=== PATIENT | female | born 1965 | race Caucasian/White ===

== ENCOUNTER 2016-12-19 16:34 | Emergency (ER) | payer MEDICAID ==
[~2016-12-19] VITALS: Ht 165.1 cm; Wt 63.5 kg
[~2016-12-19 16:34] MED LIST: HCTZ
[2016-12-19] MEDS ORDERED: HYDROMORPHONE 1 MG/1 ML DISP.SYRIN IM ONE (17:00)
[2016-12-19] MEDS ORDERED: PROMETHAZINE HCL 25 MG/1 ML VIAL IM ONE (17:00)
[2016-12-19] MEDS ORDERED: HYDROMORPHONE 2 MG/1 ML DISP.SYRIN ONE (17:06)
[2016-12-19] MEDS ORDERED: PROMETHAZINE HCL 25 MG/1 ML VIAL ONE (17:06)
--- NOTE | 2016-12-19 17:08 | NUR ---
Patient discharged to home in stable conditon. Written and verbal after care instructions given. Patient verbalizes understanding of instructions.
== END 2016-12-19 17:06 | disposition home or self-care (01) ==
LOC: ER 16:34
DX: N39.0 Urinary tract infection, site not specified (principal); M54.6 Pain in thoracic spine; M54.2 Cervicalgia; G89.29 Other chronic pain; I10 Essential (primary) hypertension; F17.200 Nicotine dependence, unspecified, uncomplicated; G43.909 Migraine, unspecified, not intractable, without status migrainosus; Z88.2 Allergy status to sulfonamides; Z88.1 Allergy status to other antibiotic agents; Z88.8 Allergy status to other drugs, medicaments and biological substances
CPT/HCPCS: 96372 ×2; 99284; A4663; J1170; J2550

== ENCOUNTER 2017-01-08 11:34 | Emergency (ER) | payer MEDICAID ==
[~2017-01-08] VITALS: Ht 165.1 cm; Wt 66.7 kg
--- NOTE | 2017-01-08 12:27 | NUR ---
Pt ambulatory to bed 4a, pt waiting to be seen.
--- NOTE | 2017-01-08 12:39 | NUR ---
Patient discharged to home in stable conditon. Written and verbal after care instructions given. Patient verbalizes understanding of instructions.pt walks in steady gait, understands that needs follow up .
== END 2017-01-08 12:41 | disposition home or self-care (01) ==
LOC: ER 11:34
DX: M54.12 Radiculopathy, cervical region (principal); I10 Essential (primary) hypertension; F17.200 Nicotine dependence, unspecified, uncomplicated; G43.909 Migraine, unspecified, not intractable, without status migrainosus; Z88.2 Allergy status to sulfonamides; Z88.8 Allergy status to other drugs, medicaments and biological substances; Z88.1 Allergy status to other antibiotic agents
CPT/HCPCS: 99283; A4663

== ENCOUNTER 2017-02-23 20:21 | Emergency (ER) | payer MEDICAID ==
[~2017-02-23] VITALS: Ht 162.6 cm; Wt 65.3 kg
--- NOTE | 2017-02-23 20:58 | NUR ---
Patient eloped from facility. ER physician notified.
--- NOTE | 2017-02-23 21:03 | NUR ---
I told the patient that given her RLQ tenderness I'd like to perform a CT, but our scanner is down. I said we'd order the CT, get an ambulance, take her to [facility], get the CT, and bring her back. She said she'd rather drive there herself and then eloped. Well appearing with normal vitals. No peritonitis.
== END 2017-02-23 21:00 | disposition left against medical advice (07) ==
LOC: ER 20:21
DX: Z53.21 Procedure and treatment not carried out due to patient leaving prior to being seen by health care provider (principal)
CPT/HCPCS: A4663

== ENCOUNTER 2017-03-31 19:40 | Emergency (ER) | payer MEDICAID ==
[~2017-03-31] VITALS: Ht 165.1 cm; Wt 68.0 kg
[2017-03-31] MEDS ORDERED: MORPHINE SULFATE 2 MG/1 ML DISP.SYRIN IV ONE (20:00)
[2017-03-31] MEDS ORDERED: IV NORMAL SALINE 1000 ML BAG IV ONE (20:00)
[2017-03-31] MEDS ORDERED: ONDANSETRON 4 MG/2 ML VIAL IV ONE (20:00)
[2017-03-31] MEDS ORDERED: ONDANSETRON 4 MG/2 ML VIAL ONE (20:10)
[2017-03-31] MEDS ORDERED: MORPHINE SULFATE 4 MG/1 ML DISP.SYRIN ONE (20:10)
[2017-03-31 20:14] LABS: *BLOOD, URINE 2+ (NEGATIVE); *CLARITY,URINE SLIGHTLY CLOUDY (CLEAR); *COLOR,URINE Brown (YELLOW); *KETONES,URINE 1+ (NEGATIVE); *PROTEIN,URINE 2+ (NEGATIVE); LEUKOCYTE ESTERASE ,URINE NEGATIVE (NEGATIVE); NITRITE, URINE POSITIVE (NEGATIVE); PH,URINE 5.5 (5.0-8.0); UGLUCOSE NEGATIVE (NEGATIVE)
[2017-03-31 20:15] LABS: BASOPHILS # (AUTO) 0.1 K/uL (0.0-8.0); BASOPHILS % (AUTO) 0.5 % (0.0-2.0); EOSINOPHILS # (AUTO) 0.2 K/uL (0.0-0.7); EOSINOPHILS % (AUTO) 1.1 % (0.0-7.0); HEMATOCRIT 39.6 % (37-47); HEMOGLOBIN 13.1 G/DL (12.0-16.0); LYMPHOCYTES # (AUTO) 1.7 K/UL (0.8-4.8); LYMPHOCYTES % (AUTO) 9.3 % (20.5-51.5); MEAN CORPUSCULAR HEMOGLOBIN 31.6 UUG (27.0-31.0); MEAN CORPUSCULAR HGB CONC 33 g/dL (32.0-37.0); MEAN CORPUSCULAR VOLUME 95.2 FL (81.0-99.0); MONOCYTES # (AUTO) 1.2 K/UL (0.1-1.30); MONOCYTES % (AUTO) 6.5 % (0.0-11.0); NEUTROPHILS # (AUTO) 14.7 K/UL (1.8-8.9); NEUTROPHILS % (AUTO) 82.6 % (38.5-71.5); PLATELET COUNT (AUTO) 237 K/UL (150-450); RED BLOOD CELL COUNT(AUTO) 4.16 MIL/UL (4.2-5.4); WHITE BLOOD COUNT (AUTO) 17.9 K/UL (4.0-11.2)
[2017-03-31 20:23] LABS: POTASSIUM 3.9 mmol/L (3.5-5.1)
[2017-03-31 20:29] LABS: BILIRUBIN,DIRECT 0.2 mg/dL (0.0-0.2); BILIRUBIN,TOTAL 0.7 mg/dL (0.2-1.0); TOTAL PROTEIN, SERUM 7.3 g/dL (6.4-8.2)
[2017-03-31 20:31] LABS: *BILIRUBIN,URIN NEGATIVE (NEGATIVE)
[2017-03-31 20:33] LABS: BACTERIA,URINE MANY /HPF (NONE SEEN); MUCUS,URINE MANY /LPF (0-FEW); RBC,URINE 20-50 /HPF (0-3); SQUAMOUS EPITHELIAL CELL,UR MODERATE /HPF (NONE SEEN)
[2017-03-31 20:39] LABS: BAND % (MANUAL) 12 % (0-10); EOSINOPHILS % (MANUAL) 1 % (0-8); LYMPHOCYTES % (MANUAL) 8 % (20-40); MONOCYTES % (MANUAL) 7 % (2-10); NEUTROPHILS % (MANUAL) 72 % (42-75)
[2017-03-31] MEDS ORDERED: NORMAL SALINE FLUSH 10 ML DISP.SYRIN ONE (20:55)
[2017-03-31] MEDS ORDERED: IOHEXOL 300MG/ML 100 ML INFUS..BTL ONE (20:55)
[2017-03-31] MEDS ORDERED: IV NORMAL SALINE 250 ML IV ONE (20:55)
--- NOTE | 2017-03-31 22:00 | NUR ---
IV removed. Catheter intact and site benign. Pressure and 4x4 gauze applied to site. No bleeding noted.
--- NOTE | 2017-03-31 22:01 | NUR ---
Patient discharged to home in stable conditon with friend/family. Written and verbal after care instructions given. Patient verbalizes understanding of instructions. Stressed follow up with pmd.
[2017-03-31 22:07] VITALS: BP 123/74
== END 2017-03-31 22:08 | disposition home or self-care (01) ==
LOC: ER 19:41
DX: K57.92 Diverticulitis of intestine, part unspecified, without perforation or abscess without bleeding (principal); E86.0 Dehydration; I10 Essential (primary) hypertension; G43.909 Migraine, unspecified, not intractable, without status migrainosus; F17.200 Nicotine dependence, unspecified, uncomplicated; Z88.2 Allergy status to sulfonamides; Z88.8 Allergy status to other drugs, medicaments and biological substances; Z90.49 Acquired absence of other specified parts of digestive tract
CPT/HCPCS: 36415; 83690; 85025; A4663; J2270; J2405; J3490; J7030; J7050; Q9967

== ENCOUNTER 2017-06-20 11:34 | Emergency (ER) | payer MEDICAID ==
[~2017-06-20] VITALS: Ht 165.1 cm; Wt 62.1 kg
--- NOTE | 2017-06-20 12:29 | NUR ---
Patient discharged to home in stable conditon. Written and verbal after care instructions given to patient. Patient verbalizes understanding of instructions.
== END 2017-06-20 12:30 | disposition home or self-care (01) ==
LOC: ER 11:34
DX: M77.9 Enthesopathy, unspecified (principal); I10 Essential (primary) hypertension; Z85.41 Personal history of malignant neoplasm of cervix uteri; Z90.49 Acquired absence of other specified parts of digestive tract
CPT/HCPCS: 73080; 99284; A4663

== ENCOUNTER 2017-07-04 13:53 | Emergency (ER) | payer MEDICAID, OTHER ==
[~2017-07-04] VITALS: Ht 165.1 cm; Wt 61.2 kg
--- NOTE | 2017-07-04 16:53 | NUR ---
PT WAS EVALUATED BY DR RAMIREZ. PT WAS D/C TO HOME. D/C INSTRUCTIONS GIVEN TO THE PT.
[2017-07-04 16:54] VITALS: BP 136/81
== END 2017-07-04 16:55 | disposition home or self-care (01) ==
LOC: ER 13:55
DX: M77.9 Enthesopathy, unspecified (principal); I10 Essential (primary) hypertension; Z88.2 Allergy status to sulfonamides; Z85.41 Personal history of malignant neoplasm of cervix uteri; G43.909 Migraine, unspecified, not intractable, without status migrainosus
CPT/HCPCS: A4663

== ENCOUNTER 2017-08-26 11:48 | Emergency (ER) | payer OTHER ==
[~2017-08-26] VITALS: Ht 165.1 cm; Wt 59.9 kg
[2017-08-26 12:04] VITALS: BP 137/70
--- NOTE | 2017-08-26 12:05 | NUR ---
Patient discharged to home in stable conditon. Written and verbal after care instructions given. Patient verbalizes understanding of instructions. Steady gait
== END 2017-08-26 12:06 | disposition home or self-care (01) ==
LOC: ER 11:48
DX: M77.12 Lateral epicondylitis, left elbow (principal); I10 Essential (primary) hypertension; Z85.41 Personal history of malignant neoplasm of cervix uteri; Z88.2 Allergy status to sulfonamides; G43.909 Migraine, unspecified, not intractable, without status migrainosus
CPT/HCPCS: 99281; A4663

== ENCOUNTER 2017-10-30 16:45 | Emergency (ER) | payer OTHER ==
[~2017-10-30] VITALS: Ht 165.1 cm; Wt 59.4 kg
[2017-10-30 17:50] VITALS: BP 136/90
--- NOTE | 2017-10-30 17:51 | NUR ---
Patient discharged to home in stable conditon. Written and verbal after care instructions given with RX. Patient verbalizes understanding of instructions.
== END 2017-10-30 17:53 | disposition home or self-care (01) ==
LOC: ER 16:46
DX: K12.0 Recurrent oral aphthae (principal); G43.909 Migraine, unspecified, not intractable, without status migrainosus; I10 Essential (primary) hypertension; Z88.2 Allergy status to sulfonamides; Z85.41 Personal history of malignant neoplasm of cervix uteri; F17.200 Nicotine dependence, unspecified, uncomplicated
CPT/HCPCS: 99283; A4663

== ENCOUNTER 2017-12-12 18:34 | Emergency (ER) | payer OTHER ==
[~2017-12-12] VITALS: Ht 165.1 cm; Wt 63.0 kg
[2017-12-12] MEDS ORDERED: UNK B/P MED (18:37)
--- NOTE | 2017-12-12 18:40 | NUR ---
PT IS IN ROOM #2B. DR JAIMES EVALUATED THE PT.
[2017-12-12] MEDS ORDERED: predniSONE 50 MG TABLET PO ONE (19:30)
[2017-12-12] MEDS ORDERED: predniSONE 50 MG TABLET ONE (19:33)
[2017-12-12 20:10] VITALS: BP 141/82
--- NOTE | 2017-12-12 20:10 | NUR ---
PT WAS D/C TO HOME. D/C INSTRUCTIONS GIVEN TO THE PT.
== END 2017-12-12 20:11 | disposition home or self-care (01) ==
LOC: ER 18:35
DX: J45.909 Unspecified asthma, uncomplicated (principal); I10 Essential (primary) hypertension; F17.210 Nicotine dependence, cigarettes, uncomplicated; Z90.49 Acquired absence of other specified parts of digestive tract; Z88.2 Allergy status to sulfonamides; Z88.8 Allergy status to other drugs, medicaments and biological substances; Z79.899 Other long term (current) drug therapy
CPT/HCPCS: A4663; J7512

== ENCOUNTER 2018-01-21 20:32 | Emergency (ER) | payer MEDICAID, OTHER ==
[~2018-01-21 20:32] MED LIST changes: -HCTZ; +UNK B/P MED
--- NOTE | 2018-01-21 21:10 | NUR ---
Patient came up to swatch clerk's window and stated "I will come back in the morning to be seen."
--- NOTE | 2018-01-21 21:15 | NUR ---
Patient left before being triaged or seen by ERMD. Patient was not seen or triaged
== END 2018-01-21 21:17 | disposition left against medical advice (07) ==
LOC: ER 20:35
DX: Z53.21 Procedure and treatment not carried out due to patient leaving prior to being seen by health care provider (principal)

== ENCOUNTER 2018-05-23 15:40 | Emergency (ER) | payer MEDICAID, OTHER ==
[~2018-05-23] VITALS: Ht 165.1 cm; Wt 63.5 kg
[2018-05-23] MEDS ORDERED: HYDROCODONE/APAP 5-325MG TABLET PO ONE (16:00)
[2018-05-23] MEDS ORDERED: HYDROCODONE/APAP 5-325MG TABLET ONE (16:04)
--- NOTE | 2018-05-23 16:14 | NUR ---
Patient discharged to home in stable conditon. Written and verbal after care instructions given to patient. Patient verbalizes understanding of instructions.
== END 2018-05-23 16:15 | disposition home or self-care (01) ==
LOC: ER 15:42
DX: K04.7 Periapical abscess without sinus (principal); K02.9 Dental caries, unspecified; I10 Essential (primary) hypertension; F17.200 Nicotine dependence, unspecified, uncomplicated; Z90.49 Acquired absence of other specified parts of digestive tract; Z88.2 Allergy status to sulfonamides; Z88.8 Allergy status to other drugs, medicaments and biological substances
CPT/HCPCS: A4663

== ENCOUNTER 2018-07-15 12:02 | Emergency (ER) | payer OTHER ==
[~2018-07-15] VITALS: Ht 165.1 cm; Wt 63.5 kg
--- NOTE | 2018-07-15 12:20 | NUR ---
PT IS IN ROOM #2A. DR VERGARA EVALUATED THE PT.
[2018-07-15 12:33] LABS: *BILIRUBIN,URIN NEGATIVE (NEGATIVE); *BLOOD, URINE 3+ (NEGATIVE); *CLARITY,URINE CLEAR (CLEAR); *COLOR,URINE YELLOW (YELLOW); *KETONES,URINE NEGATIVE (NEGATIVE); *PROTEIN,URINE NEGATIVE (NEGATIVE); *UROBILINOGEN,URINE 0.2 E.U./dl (NORMAL); LEUKOCYTE ESTERASE ,URINE 1+ (NEGATIVE); NITRITE, URINE POSITIVE (NEGATIVE); PH,URINE 5.5 (5.0-8.0); UGLUCOSE NEGATIVE (NEGATIVE)
[2018-07-15 12:39] LABS: BACTERIA,URINE MANY /HPF (NONE SEEN); RBC,URINE 20-50 /HPF (0-3); SQUAMOUS EPITHELIAL CELL,UR MANY /HPF (NONE SEEN)
--- NOTE | 2018-07-15 12:48 | NUR ---
PT WAS D/C TO HOME. D/C INSTRUCTIONS GIVEN TO THE PT.
[2018-07-15 12:49] VITALS: BP 139/81
== END 2018-07-15 12:51 | disposition home or self-care (01) ==
LOC: ER 12:02
DX: N39.0 Urinary tract infection, site not specified (principal); I10 Essential (primary) hypertension; Z88.2 Allergy status to sulfonamides; Z88.8 Allergy status to other drugs, medicaments and biological substances
CPT/HCPCS: 81001; 87077; 87086; 87186; 99284; A4663

== ENCOUNTER 2018-07-20 13:48 | Emergency (ER) | payer OTHER ==
[~2018-07-20] VITALS: Ht 165.1 cm; Wt 62.6 kg
--- NOTE | 2018-07-20 14:05 | NUR ---
Patient seen by
[2018-07-20] MEDS ORDERED: LOSARTAN POTASSIUM 25 MG TAB (14:08)
[2018-07-20] MEDS ORDERED: GABAPENTIN 300 MG CAPSULE (14:08)
[2018-07-20] MEDS ORDERED: CIPROFLOXACIN HCL 500 MG TAB (14:08)
--- NOTE | 2018-07-20 14:30 | NUR ---
pt. back from CT. at this time.
== END 2018-07-20 15:21 | disposition home or self-care (01) ==
LOC: ER 13:50
DX: R51 Headache (principal); F17.200 Nicotine dependence, unspecified, uncomplicated; I10 Essential (primary) hypertension; Z88.2 Allergy status to sulfonamides; Z88.8 Allergy status to other drugs, medicaments and biological substances
CPT/HCPCS: 70450; A4663

== ENCOUNTER 2018-11-01 12:31 | Emergency (ER) | payer OTHER ==
[~2018-11-01] VITALS: Ht 165.1 cm; Wt 62.6 kg
[~2018-11-01 12:31] MED LIST changes: +CIPROFLOXACIN HCL 500 MG TAB; +GABAPENTIN 300 MG CAPSULE; +LOSARTAN POTASSIUM 25 MG TAB
[2018-11-01 13:42] LABS: *BILIRUBIN,URIN NEGATIVE (NEGATIVE); *BLOOD, URINE 2+ (NEGATIVE); *COLOR,URINE YELLOW (YELLOW); *KETONES,URINE TRACE (NEGATIVE); *UROBILINOGEN,URINE 0.2 E.U./dl (NORMAL); LEUKOCYTE ESTERASE ,URINE NEGATIVE (NEGATIVE); NITRITE, URINE NEGATIVE (NEGATIVE); PH,URINE 5.5 (5.0-8.0); UGLUCOSE NEGATIVE (NEGATIVE)
[2018-11-01 13:43] LABS: *CLARITY,URINE HAZY (CLEAR)
[2018-11-01 13:46] LABS: RBC,URINE 50-80 /HPF (0-3)
[2018-11-01 13:48] LABS: BACTERIA,URINE NONE SEEN /HPF (NONE SEEN); SQUAMOUS EPITHELIAL CELL,UR FEW /HPF (NONE SEEN)
[2018-11-01 13:49] LABS: *URINE HCG, QUAL NEGATIVE (NEGATIVE); MUCUS,URINE MODERATE /LPF (0-FEW)
--- NOTE | 2018-11-01 16:08 | NUR ---
Patient discharged to home in stable conditon. Written and verbal after care instructions given. Patient verbalizes understanding of instructions.
[2018-11-01 16:29] VITALS: BP 110/72
== END 2018-11-01 16:29 | disposition home or self-care (01) ==
LOC: ER 12:31
DX: M65.4 Radial styloid tenosynovitis [de Quervain] (principal); R31.9 Hematuria, unspecified; I10 Essential (primary) hypertension; F17.200 Nicotine dependence, unspecified, uncomplicated; Z88.2 Allergy status to sulfonamides; Z88.8 Allergy status to other drugs, medicaments and biological substances; Z79.2 Long term (current) use of antibiotics; Z79.899 Other long term (current) drug therapy
CPT/HCPCS: 73110; 84703; 87086; A4663